=== PATIENT | female | born 1950 | race Caucasian/White ===

== ENCOUNTER → 2016-06-26 | Outpatient (CLI) | payer MEDICARE, OTHER ==
[~2016-06-26] MED LIST: KEFLEX 500MG.500 MG PO; LEVOTHYROXIN0.075 M1 PO; PROPRANOLOL HCL20 MG PO
--- NOTE | 2016-06-26 09:57 | RADIOLOGY REPORT PS360 ---
BONE DENSITOMETRY(HIP:LT SPINE HISTORY: POST MENOPAUSAL COMPARISON: None FINDINGS: The BMD measured at the left femoral neck is 0.861 g/cm squared with a T score of -1.3. This is considered Osteopenic according to the World Health Organization criteria. Fracture risk is Moderate. Treatment is advised. IMPRESSION: Osteopenia. Treatment is advised. Recommend follow-up exam June 2018
--- NOTE | 2016-06-28 07:52 | RADIOLOGY REPORT PS360 ---
DIG MAMM-SCREEN [facility] W/CAD CAD Screening COMPARISON: Digital mammograms 07/04/2013 and 01/15/2015 INDICATION: There is a history of breast cancer patient's mother diagnosed at age 65 and in the patient's maternal great aunt diagnosed after menopause TECHNIQUE: Standard CC and MLO images were obtained. R2 CAD reviewed. FINDINGS: Moderate diffuse breast density is noted with scattered fibroglandular densities throughout both breasts basically stable and unchanged from the previous exams. Again noted are couple benign-appearing calcifications in each breast, there is a mole marker left breast. There is no new or suspicious lesion in either breast and there are no suspicious microcalcifications. There is a stable tiny benign-appearing nodular density upper outer quadrant right breast. IMPRESSION: Stable exam with no suspicious lesion seen recommend yearly follow-up BI-RADS CATEGORY: 2_Benign RECOMMENDED FOLLOWUP: 12M 12 MONTH FOLLOW-UP (A letter has been sent to the patient regarding results of the study.)
== END ==
LOC: RAD 08:17
DX: Z12.31 Encounter for screening mammogram for malignant neoplasm of breast (principal); N95.9 Unspecified menopausal and perimenopausal disorder
CPT/HCPCS: G0202